=== PATIENT | male | born 1995 | race Two or more races ===

== ENCOUNTER 2018-06-20 03:00 | Emergency (ER) | payer SELFPAY ==
[~2018-06-20] VITALS: Ht 172.7 cm; Wt 95.3 kg
[2018-06-20 03:37] VITALS: BP 120/82
[2018-06-20] MEDS ORDERED: Methocarbamol 750mg tab ORAL ONE (03:45)
[2018-06-20] MEDS ORDERED: Ketorolac 30mg Inj IM ONE (03:45)
[2018-06-20] MEDS ORDERED: ROBAXIN-750750 MG PO (03:59)
[2018-06-20] MEDS ORDERED: IBUPROFEN600 MG ORAL (03:59)
[2018-06-20] MEDS ORDERED: LIDODERM700 M1 TOPIC (03:59)
[2018-06-20 04:05] VITALS: BP 120/82
--- NOTE | 2018-06-20 21:54 | Emergency Room Report ---
History of Present Illness General Chief Complaint: Pain Source: Patient Present Illness HPI 23-year-old male resents ED complaining of left leg pain times one day. States he's got pain going from his left knee radiating up to his left buttock. Cramping, 8 out of 10, nonradiating. Denies calf pain. Denies chest pain shortness of breath. Denies abdominal pain. Denies bowel or bladder incontinence. Denies any leg or motor weakness. No other aggravating relieving factors. Denies any other associated symptoms Allergies: Coded Allergies: No Known Allergies (Unverified , 06/20/18) Patient History Past Medical History: none Past Surgical History: none Pertinent Family History: none Social History: Denies: smoking, alcohol use, drug use Immunizations: UTD Reviewed Nursing Documentation: PMH: Agreed; PSxH: Agreed Nursing Documentation-PMH Past Medical History: No Stated History Review of Systems All Other Systems: negative except mentioned in HPI Physical Exam Vital Signs Date Time Temp Pulse Resp B/P (MAP) Pulse Ox O2 Delivery O2 Flow Rate FiO2 06/20/18 03:05 99.3 85 18 115/60 96 Room Air Sp02 EP Interpretation: reviewed, normal General Appearance: no apparent distress, alert, GCS 15, non-toxic Head: normocephalic Eyes: bilateral eye normal inspection, bilateral eye PERRL ENT: normal ENT inspection Neck: normal inspection Respiratory: normal inspection Cardiovascular #1: normal inspection Gastrointestinal: normal inspection Rectal: deferred Genitourinary: no CVA tenderness Musculoskeletal: no calf tenderness, tender - reproducible tenderness L hamstring. no bruising/swelling. no crepitus Neurologic: alert, oriented x3, responsive, motor strength/tone normal, sensory intact, speech normal Psychiatric: normal inspection Skin: normal inspection Lymphatic: normal inspection Medical Decision Making Diagnostic Impression: Primary Impression: Hamstring strain Qualified Codes: S76.319A - Strain of muscle, fascia and tendon of the posterior muscle group at thigh level, unspecified thigh, initial encounter ER Course Hospital Course 23-year-old male presents to ED complaining of LLE pain no trauma Differential diagnoses include: Fracture, dislocation, sprain, contusion, bursitis Clinical course Patient placed on stretcher. After initial history, physical exam reveals a male in no acute distress. There is some palpable tenderness to the left hamstring. No bony tenderness. No calf tenderness. No swelling. No crepitus. No involvement of the knee. Likely hamstring strain. Discussed findings with patient. Given pain meds here. Will discharge with analgesics, muscle relaxers. Safe for discharge with close outpatient follow-up. We'll provide orthopedic referral Diagnosis - hamstring strain stable and discharged to home with prescription for Motrin, robaxin, lidoderm patch. Followup with PMD. Return to ED if symptoms recur or worsen Last Vital Signs Date Time Temp Pulse Resp B/P (MAP) Pulse Ox O2 Delivery O2 Flow Rate FiO2 06/20/18 04:05 97.8 63 18 120/82 98 Room Air Status: improved Disposition: HOME, SELF-CARE Condition: Stable Scripts Lidocaine (Lidoderm) 1 Each Adh..patch 1 PATCH TOPIC DAILY, #7 PATCH 0 Refills Patch(es) may remain in place for up to 12 hours in any 24-hour period. Prov: Selvin Sibley MD 06/20/18 Methocarbamol* (ROBAXIN-750*) 750 Mg Tablet 750 MG PO TID, #21 TAB 0 Refills Prov: Selvin Sibley MD 06/20/18 Ibuprofen* (MOTRIN*) 600 Mg Tablet 600 MG ORAL Q8H PRN for For Pain, #30 TAB 0 Refills Prov: Selvin Sibley MD 06/20/18 Patient Instructions: Hamstring Strain With Rehab-Sports[facility] Selvin Sibley MD Jun 20, 2018 21:54
== END 2018-06-20 04:07 | disposition home or self-care (01) ==
LOC: EMR 03:29
DX: S86.812A Strain of other muscle(s) and tendon(s) at lower leg level, left leg, initial encounter (principal); X58.XXXA Exposure to other specified factors, initial encounter; Y92.9 Unspecified place or not applicable
CPT/HCPCS: 96372; 99283; J1885